=== PATIENT | female | born 1990 | race Caucasian/White ===

== ENCOUNTER 2018-05-06 05:48 | Observation (INO) | payer SELFPAY ==
[~2018-05-06] VITALS: Ht 6 cm; Wt 77.1 kg
[2018-05-06] MEDS ORDERED: PNV1TABL50 PO (06:25)
[2018-05-06] MEDS ORDERED: LACTATED RINGERS 1,000 ML IV ONE (06:45)
[2018-05-06 07:12] LABS: CLARITY URINE CLEAR (CLEAR); COLOR URINE YELLOW (YELLOW); KETONES URINE NEGATIVE (NEGATIVE); LEUKOCYTE ESTERASE URINE 2+ (NEGATIVE); NITRITE URINE NEGATIVE (NEGATIVE); OCCULT BLOOD URINE NEGATIVE (NEGATIVE); PH URINE 6.5 (4.5-8.0); PROTEIN URINE NEGATIVE (NEGATIVE); UROBILINOGEN URINE 0.2 E.U./dL (0.2-1.0)
== END 2018-05-06 11:34 | disposition home or self-care (01) ==
LOC: EDBD 05:48 → L&D 05:48
PROVIDERS: ADMIT Obstetrics & Gynecology; ATTEND Obstetrics & Gynecology
DX: O26.892 Other specified pregnancy related conditions, second trimester (principal); R10.30 Lower abdominal pain, unspecified; Z3A.21 21 weeks gestation of pregnancy
CPT/HCPCS: 81003; 99281; G0378; 96360; 96361